=== PATIENT | female | born 1975 | race Caucasian/White ===

== ENCOUNTER 2019-03-21 09:43 | Outpatient (CLI) | payer BC, SELFPAY ==
--- NOTE | ~2019-03-21 | MM_ITS ---
EXAMINATION: MM screening mammo implant BI HISTORY: Screening mammogram TECHNIQUE: Craniocaudal and mediolateral oblique 3-D tomosynthesis images with implant displacement a nd synthetic 2-D images were generated. Craniocaudal and mediolateral oblique views of the breasts wi thout implant displacement were obtained using full field digital mammography. CAD analysis was submi tted and interpreted. COMPARISON: No prior mammogram is available for comparison at this institution. BREAST PARENCHYMAL COMPOSITION: There are scattered areas of fibroglandular density. FINDINGS: Status post bilateral augmentation mammoplasty. There is no evidence of suspicious mass, ca lcification, or architectural distortion to suggest malignancy in either breast. There has been no leon spicious interval change. IMPRESSION: 1. No mammographic evidence of malignancy. 2. Recommend routine screening mammography in one year. BI-RADS Category 1: Negative Reviewed, dictated and finalized at location A. FACTURING CONTROLLER
== END 2019-03-21 09:44 | disposition home or self-care (01) ==
PROVIDERS: PCP Family Medicine
DX: Z12.31 Encounter for screening mammogram for malignant neoplasm of breast (principal)
CPT/HCPCS: 77067

== ENCOUNTER 2019-04-28 16:06 | Outpatient (CLI) | payer BC, SELFPAY ==
--- NOTE | ~2019-04-28 | XR_ITS ---
EXAMINATION: XR thoracic spine 2V EXAM DATE: 04/28/2019 16:39 INDICATION: Back pain. TECHNIQUE: Frontal and lateral projections of the thoracic spine as well as lateral swimmers projecti on of the upper thoracic spine for interpretation. There is no prior study for comparison. FINDINGS: The vertebral bodies are aligned in the AP dimension. Vertebral body and disc heights are well-maintained. There are no bony erosions identified. Paraspinal soft tissue is unremarkable. IMPRESSION: Unremarkable XR thoracic spine 2V exam. Reviewed, dictated and finalized at location A. TECH
--- NOTE | ~2019-04-28 | CT_ITS ---
EXAMINATION: CT brain wo con EXAM DATE: 04/28/2019 16:30 INDICATION: Headache with left-sided paresthesia. TECHNIQUE: Spiral CT of the head was performed without contrast. Axial, coronal and sagittal images were reviewed. The dose-length product (DLP) for this examination was 605.33 mGy-cm. The exposure w as tailored according to patient size, and iterative reconstruction (ASIR) was used as additional dos e reduction technique. There is no prior study for comparison. FINDINGS: There is no acute intraparenchymal hemorrhage. No evidence of intraparenchymal brain mass lesion. No evidence of acute infarction. There is no mass effect or midline shift. The ventricles are normal in size. There are no extra-axial collections. There are no acute calvarial fractures. T he orbits are unremarkable. Soft tissue is unremarkable. The visualized sinuses and mastoid air millicent ls are well aerated. IMPRESSION: 1. No acute intracranial findings. Reviewed, dictated and finalized at location A. MOLDER
--- NOTE | ~2019-04-28 | XR_ITS ---
EXAMINATION: XR_CERV2-3V_CR EXAM DATE: 04/28/2019 16:39 INDICATION: Unexplained left arm and left leg numbness. No known recent injury. TECHNIQUE: Cervical spine frontal lateral and open-mouth odontoid projections. Comparison is made to prior examination from 04/03/2016. FINDINGS: There is no evidence of acute cervical fracture. The odontoid process is intact. Pre-dens space is normal. Prevertebral soft tissue is normal. There are no soft tissue abnormalities identi fied. The vertebral bodies are aligned. Vertebral body and disc heights are well-maintained. There is evidence of mild mid cervical arthropathy. Probably some amount of left neural foraminal james nosis at C4-5 and 5-6. IMPRESSION: 1. Mild cervical arthropathy. Reviewed, dictated and finalized at location A. TAL PHOTOGRAPHIC PRINTER
--- NOTE | ~2019-04-28 | XR_ITS ---
EXAMINATION: XR lumbar spine 2-3V EXAM DATE: 04/28/2019 16:39 INDICATION: Anesthesia of skin. TECHNIQUE: Lumber spine frontal, lateral, lateral L5-S1 projections for interpretation. Comparison is made to prior examination from 12/11/2018. FINDINGS: Vertebral body and disc heights are well-maintained. Mild lower lumbar facet arthropathy. There are n o bony erosions identified. There are no acute fractures identified. Sacrum, sacroiliac joints, sacra l arcuate lines are intact. Paraspinal soft tissue is unremarkable. IMPRESSION: Mild lower lumbar facet arthropathy. Reviewed, dictated and finalized at location A. NOLOGY SUPPORT ANALYST
== END 2019-04-28 16:07 | disposition home or self-care (01) ==
PROVIDERS: PCP Family Medicine; Visit Provider Family Medicine
DX: M54.9 Dorsalgia, unspecified (principal); R20.0 Anesthesia of skin
CPT/HCPCS: 70450; 72040; 72070; 72100

== ENCOUNTER 2020-03-09 15:49 | Outpatient (CLI) | payer BC, SELFPAY ==
--- NOTE | ~2020-03-09 | XR_ITS ---
EXAMINATION: XR hip RT 2V w AP pelvis DATE: 03/09/2020 16:11 INDICATION: Right hip pain. TECHNIQUE: An anteroposterior view of the pelvis and 2 views of right hip were obtained. COMPARISON: None. FINDINGS: Bone alignment is normal. No fracture. There is mild osteoarthritis of the hips characteriz ed by tiny marginal osteophytes. IMPRESSION: 1. Mild osteoarthritis of the hips. Reviewed, dictated and finalized at location A. PEST CONTROL SPECIALIST
== END 2020-03-09 15:50 | disposition home or self-care (01) ==
PROVIDERS: PCP Family Medicine; Visit Provider Family Medicine
DX: M16.11 Unilateral primary osteoarthritis, right hip (principal)
CPT/HCPCS: 73502

== ENCOUNTER 2020-07-15 10:44 | Outpatient (CLI) | payer BC, SELFPAY ==
--- NOTE | ~2020-07-15 | MR_ITS ---
EXAMINATION: MR lumbar spine wo con EXAM DATE: 07/15/2020 11:22 INDICATION: Right leg pain and numbness, L5. TECHNIQUE: Multi-sequential, multiplanar MR images of the lumbar spine were obtained without contrast . Sagittal T1, T2, T2 fat saturation images. Axial T2 weighted images. Correlation is made to lumba r x-ray 04/28/2019. FINDINGS: Mild disc disease L3-4 and L5-S1. Tiny annular fissure at L5-S1. The vertebral bodies are a ligned in the AP dimension. The conus medullaris terminates at the L1/2 level and has normal signal i ntensity and morphology. There are scattered focal signal abnormalities consistent with hemangiomata, otherwise without focal suspicious marrow signal abnormalities. Paraspinal soft tissue is unremarkab le. Level by level evaluation: T12-L1: Disc does not extend beyond the endplate margin. Facet arthropathy: None. Neural foraminal stenosis: No stenosis. Central canal stenosis: No stenosis. L1-L2: Disc does not extend beyond the endplate margin. Facet arthropathy: None. Neural foraminal stenosis: No stenosis. Central canal stenosis: No stenosis. L2-L3: Disc does not extend beyond the endplate margin. Facet arthropathy: Mild. Neural foraminal stenosis: No stenosis. Central canal stenosis: No stenosis. L3-L4: There is a mild diffuse disc bulge. Facet arthropathy: Mild. Neural foraminal stenosis: Mild left. Central canal stenosis: No stenosis. L4-L5: There is a mild diffuse disc bulge. Facet arthropathy: Mild to moderate. Neural foraminal stenosis: Mild to moderate right, mild left. Central canal stenosis: Mild. L5-S1: There is a mild diffuse disc bulge. Facet arthropathy: Mild. Neural foraminal stenosis: Mild right. Central canal stenosis: Mild. IMPRESSION: Mild lumbar spondylosis. Reviewed, dictated and finalized at location A. IMPRESSION: Mild lumbar spondylosis.
== END 2020-07-15 10:45 | disposition home or self-care (01) ==
PROVIDERS: PCP Family Medicine; Visit Provider Orthopaedic Surgery
DX: M79.604 Pain in right leg (principal); R20.0 Anesthesia of skin; M47.816 Spondylosis without myelopathy or radiculopathy, lumbar region
CPT/HCPCS: 72148

== ENCOUNTER 2020-10-27 09:34 | Emergency (ER) | payer BC, SELFPAY ==
--- NOTE | ~2020-10-27 | CT_ITS ---
EXAMINATION: CT facial & cervical spine wo EXAM DATE: 10/27/2020 11:06 INDICATION: Headache, facial injury. Neck pain, dizziness. Loss of consciousness. TECHNIQUE: Spiral CT of the facial bones was acquired in the axial plane. Coronal reformatted images were also reviewed. Spiral CT of the cervical spine was performed without contrast. Axial images we re reviewed. Coronal and sagittal reformatted images were also reviewed. The dose-length product (DL P) for this examination was 208.67 mGy-cm. The exposure was tailored according to patient size, and iterative reconstruction (ASIR) was used as additional dose reduction technique. There is no prior s tudy for comparison. FINDINGS: FACIAL CT: There are no displaced acute nasal bone fractures. The mandible, sinuses and orbits are i ntact. The orbits, globes and extraocular muscles are unremarkable. The visualized sinuses and ma stoid air cells are well aerated. Some left scalp and periorbital swelling. CERVICAL CT: There is no evidence of acute cervical fracture. The odontoid process is intact. Pre-d ens space is normal. Prevertebral soft tissue is normal. There are no soft tissue abnormalities tray ntified. There is no disc space widening or traumatic vertebral body subluxation suspected. Vertebr al body and disc heights are well-maintained. Upper thoracic facet arthropathy. A detailed level by kay niño evaluation of spondylosis can be added as addendum if requested. IMPRESSION: 1. No acute facial or cervical fracture. 2. Left scalp, periorbital swelling. Reviewed, dictated and finalized at location B.
--- NOTE | ~2020-10-27 | CT_ITS ---
EXAMINATION: CT brain wo con EXAM DATE: 10/27/2020 11:06 INDICATION: Trauma, head injury. Facial injury. Loss of consciousness. Neck pain. TECHNIQUE: Spiral CT of the head was performed without contrast. Axial, coronal and sagittal images were reviewed. The dose-length product (DLP) for this examination was 605.33 mGy-cm. The exposure w as tailored according to patient size, and iterative reconstruction (ASIR) was used as additional dos e reduction technique. Comparison is made to prior examination from 04/28/2019. FINDINGS: There is no acute intraparenchymal hemorrhage. No evidence of intraparenchymal brain mass lesion. No evidence of acute infarction. There is no mass effect or midline shift. The ventricles are normal in size. There are no extra-axial collections. There are no acute calvarial fractures. T he orbits are unremarkable. There is left frontal scalp hematoma and adjacent swelling. The visualiz ed sinuses and mastoid air cells are well aerated. IMPRESSION: 1. No acute intracranial findings. 2. Left frontal scalp hematoma, swelling. Reviewed, dictated and finalized at location B.
[2020-10-27 09:39] VITALS: BP 133/95; PULSE 72; RESP 18; TEMP 36.3; O2SAT 100
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
[2020-10-27 11:48] VITALS: BP 127/90; PULSE 85; RESP 16; O2SAT 100
[2020-10-27 12:39] VITALS: BP 119/73; PULSE 74; RESP 16; O2SAT 99
== END 2020-10-27 12:40 | disposition home or self-care (01) ==
PROVIDERS: Emergency Provider Emergency Medicine; PCP Family Medicine
DX: S06.0X1A Concussion with loss of consciousness of 30 minutes or less, initial encounter (principal); E78.5 Hyperlipidemia, unspecified; V00.141A Fall from scooter (nonmotorized), initial encounter
CPT/HCPCS: 70450; 70486; 72125; 99284

== ENCOUNTER 2021-10-05 15:26 | Outpatient (CLI) | payer BC, SELFPAY ==
[2021-10-05 15:45] LABS: Basophils Percent Auto 0.5 % (0.2-1.2); Eosinophils Absolute Auto 0.1 K/mm3 (0-0.3); Eosinophils Percent Auto 1.9 % (0-4.4); Hematocrit 37.8 % (37.0-47.0); Hemoglobin 12.7 g/dL (12.0-15.0); Immature Granulocyte Absolute 0.02 K/mm3 (0.00-0.031); Immature Granulocyte Percent A 0.5 % (0-0.5); Lymphocytes Absolute Auto 1.31 K/mm3 (0.9-3.2); Lymphocytes Percent Auto 30.8 % (18.3-44.2); Mean Corpuscular HGB Conc 33.6 g/dl (32-36); Mean Corpuscular Volume 92.2 fl (80-100); Mean Platelet Volume 9.1 fl (7.4-10.4); Monocytes Absolute Auto 0.3 K/mm3 (0.1-0.6); Monocytes Percent Auto 7.5 % (2.6-8.5); Neutrophils Absolute Auto 2.5 K/mm3 (1.3-6.7); Neutrophils Percent Auto 58.8 % (45.5-73.1); Platelet Count Result 304 k/mm3 (150-375); Red Cell Distribution Width 12.5 % (11.5-14.5); White Blood Count 4.3 K/mm3 (4.5-10.0)
[2021-10-05 15:57] LABS: Alanine Aminotransferase 17 U/L (6-35); Albumin Level 4.4 g/dL (3.5-5.1); Alkaline Phosphatase 84 U/L (38-126); Anion Gap 9 mmol/L (8-16); Aspartate Amino Transferase 28 U/L (14-36); Bilirubin,Total 0.6 mg/dL (0.2-1.3); Blood Urea Nitrogen 11 mg/dL (7-17); CRP < 0.5 mg/dL (<1.0); Calcium 9.1 mg/dL (8.4-10.2); Carbon Dioxide 25 mmol/L (22-30); Chloride 101 mmol/L (98-107); Estimated Glomerular Filt Rate > 60; Glucose 97 mg/dL (65-110); Potassium 3.8 mmol/L (3.4-5.0); Sodium 135 mmol/L (137-145)
[2021-10-05 16:45] LABS: Erythrocyte Sedimentation Rate 15 mm/hr (0-20)
[2021-10-07 07:50] LABS: Uric Acid 3.4 mg/dL (2.5-7.5)
[2021-10-07 07:55] LABS: Rheumatoid Factor < 8.6 IU/ML (<12)
[2021-10-10 04:58] LABS: Anti Streptolysin O Screen 198 IU/mL (<200)
== END 2021-10-05 15:27 | disposition home or self-care (01) ==
LOC: ANHLAB 15:27
PROVIDERS: PCP Family Medicine; Visit Provider Family Medicine
DX: R21 Rash and other nonspecific skin eruption (principal)
CPT/HCPCS: 36415; 80053; 84443; 84550; 85025; 85652; 86038; 86060; 86140; 86430

== ENCOUNTER 2021-10-17 16:54 | Outpatient (CLI) | payer BC, SELFPAY ==
--- NOTE | ~2021-10-17 | XR_ITS ---
EXAMINATION: XR hand BI arthritis min 3V DATE: 10/17/2021 17:23 INDICATION: Joint pain. TECHNIQUE: 4 views of right hand and 4 views of left hand on a total of 7 radiographs were obtained. COMPARISON: Right hand radiographs 06/07/2016 FINDINGS: RIGHT HAND: Bone alignment is normal. No fracture. There is mild osteoarthritis of first carpometacar pal joint. LEFT HAND: Bone alignment is normal. No fracture. There is mild osteoarthritis of second metacarpopha langeal joint. IMPRESSION: 1. Mild polyarticular osteoarthritis. Reviewed, dictated and finalized at location A.
== END 2021-10-17 16:55 | disposition home or self-care (01) ==
LOC: ANHIMG 16:56
PROVIDERS: PCP Family Medicine; Visit Provider Family Medicine
DX: M19.041 Primary osteoarthritis, right hand (principal); M19.042 Primary osteoarthritis, left hand
CPT/HCPCS: 73130

== ENCOUNTER 2021-12-06 08:00 | Outpatient (NON) | payer BC, SELFPAY | END 2021-12-06 08:01 | disposition home or self-care (01) | LOC: ANHLAB 12-09 15:23 | PROVIDERS: PCP Family Medicine; Visit Provider Nurse Practitioner | DX: C44.329 Squamous cell carcinoma of skin of other parts of face (principal) | CPT/HCPCS: 88305 ==

== ENCOUNTER 2022-01-23 14:16 | Outpatient (NON) | payer BC, SELFPAY | END 2022-01-23 14:17 | disposition home or self-care (01) | LOC: ANHLAB 14:17 | PROVIDERS: PCP Family Medicine; Referring Provider Nurse Practitioner; Visit Provider Nurse Practitioner | DX: C44.92 Squamous cell carcinoma of skin, unspecified (principal) | CPT/HCPCS: 88305; 88331 ==